=== PATIENT | male | born 1960 ===

== ENCOUNTER 2018-04-08 13:39 | Emergency (ER) | payer OTHER, BC ==
--- NOTE | 2018-04-08 14:04 | ED PDOC ---
Arrival/HPI - General Time Seen by Provider: 04/08/18 14:03 Historian: Patient - History of Present Illness Narrative History of Present Illness (Text): 04/08/18 14:03 58 y/o male, no significant pmh, nkda, c/o mid and lower back pain s/p slipped and landed on the lower back today. Aching pain, aggravated by movement, no numbness or tingling, no urinary or bowel incontinence retention, no rash, no hematuria, no rib or chest pain, no coughing, no night sweat, no other medical or psychological complaints. Past Medical History - Provider Review Nursing Documentation Reviewed: Yes Family/Social History - Physician Review Nursing Documentation Reviewed: Yes Family/Social History: Unknown Family HX Allergies/Home Meds Allergies/Adverse Reactions: Allergies No Known Allergies Allergy (Verified 04/08/18 14:18) Review of Systems - Review of Systems Constitutional: absent: Fatigue, Fevers Eyes: absent: Vision Changes ENT: absent: Hearing Changes Respiratory: absent: SOB, Cough Cardiovascular: absent: Chest Pain Gastrointestinal: absent: Abdominal Pain, Nausea, Vomiting Musculoskeletal: Back Pain. absent: Arthralgias, Neck Pain, Joint Swelling, Myalgias Skin: absent: Rash, Pruritis Neurological: absent: Headache, Dizziness Psychiatric: absent: Anxiety, Depression Physical Exam Vital Signs Reviewed: Yes Vital Signs Temp Pulse Resp BP Pulse Ox 04/08/18 14:13 98.8 F 85 16 142/87 97 Blood Pressure: Normal Pulse: Regular Respiratory Rate: Normal Appearance: Positive for: Well-Appearing, Non-Toxic, Comfortable Pain Distress: None Mental Status: Positive for: Alert and Oriented X 3 - Systems Exam Head: Present: Atraumatic, Normocephalic Pupils: Present: PERRL Extroacular Muscles: Present: EOMI Conjunctiva: Present: Normal Mouth: Present: Moist Mucous Membranes Neck: Present: Normal Range of Motion, Trachea Midline. No: Meningeal Signs, MIDLINE TENDERNESS, Paraspinal Tenderness, Lymphadenopathy Respiratory/Chest: Present: Clear to Auscultation, Good Air Exchange. No: Respiratory Distress, Accessory Muscle Use Cardiovascular: Present: Regular Rate and Rhythm, Normal S1, S2. No: Murmurs Abdomen: No: Tenderness, Distention, Peritoneal Signs Back: Present: Normal Inspection, Other (Thoracic to LS spine: +ttp on the rt. paraspinal muscle region, no midline tenderness or step off, no rash, FROM without limitation, sensation intact, motor 5/5, SLR test negative, no focal neurological deficits. ). No: CVA Tenderness, Midline Tenderness, Pain with Leg Raise, Decubitus Ulcer Upper Extremity: Present: Normal Inspection. No: Cyanosis, Edema Lower Extremity: Present: Normal Inspection. No: Edema Neurological: Present: GCS=15, CN II-XII Intact, Speech Normal, Motor Func Grossly Intact, Gait Normal, Memory Normal Skin: Present: Warm, Dry, Normal Color. No: Rashes Psychiatric: Present: Alert, Oriented x 3, Normal Insight, Normal Concentration Medical Decision Making ED Course and Treatment: 04/08/18 14:25 -Thoracic and LS spine xray -Toradol IM -Observe and reassess 04/08/18 15:50 -Thoracic spine: Normal radiographs of the thoracic spine. -LS spine: There is mild anterior subluxation of L4 over L5. There is facet degeneration in the lower lumbar spine -Pt. has no focal neurological deficits, feeling much better, walking with normal gait and posture, no L4L5 midline tenderness or step off, normal reflexes on the bilateral lower extremities, no numbness or tingling either, will discharge home. I discussed all radiology result with the patient. It doesn 't appear that subluxation is acute as there is no signs or physical examination of acute. -Case discussed with Dr. Merino, discussed about the case and no focal neurologist deficits which he suggest to discharge home with physical therapist and chiropractor. -Discharge home with motrin, flexeril, lidoderm patch, avoid strenuous strenuous exercise or activity, follow up with your own pmd and neurosurgery/ chiropractor and physical therapist within 2 days, return to the ER for any new or worsening signs or symptoms. - RAD Interpretation Radiology Orders: 04/08/18 14:22 DORSAL (THORACIC) SPINE [RAD] Stat LS SPINE WITH OBL > 18 YRS OLD [RAD] Stat Thoracic Spine: HISTORY: mid back pain, s/p fall COMPARISON: No prior. FINDINGS: BONES: Alignment maintained. No fracture. DISC SPACES: Normal. SOFT TISSUES: Normal. OTHER FINDINGS: None. IMPRESSION: Normal radiographs of the thoracic spine. LS Spine: PROCEDURE: Radiographs of the Lumbar Spine. HISTORY: low back pain s/p fall COMPARISON: No prior. FINDINGS: BONES: There is mild anterior subluxation of L4 over L5. There is facet degeneration in the lower lumbar spine DISC SPACES: Unremarkable. OTHER FINDINGS: None. IMPRESSION: There is mild anterior subluxation of L4 over L5. 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 No Sleep Is patient sleeping during reassessment? No Presence of Pain Presence of Pain Yes Pain Scale Used Pain Scale Used Numeric Location Pain Location Body Site Back Description Description Constant IM Administration Charges Document 04/08/18 14:31 LA (Rec: 04/08/18 14:31 LA [id number]) Injection Site MAR Injection Site Right Gluteus Giovanni Charges for Administration # of IM Administrations 1 - PA / RET[employer] PH[employer]Y MANAGER / Resident Statement MD/DO has reviewed & agrees with the documentation as recorded. Disposition/Present on Arrival - Present on Arrival Any Indicators Present on Arrival: No History of DVT/PE: No History of Uncontrolled Diabetes: No Urinary Catheter: No History of Decub. Ulcer: No - Disposition Have Diagnosis and Disposition been Completed?: Yes Diagnosis: Back pain, Subluxation of lumbar vertebra Disposition: HOME/ ROUTINE Disposition Time: 14:25 Patient Plan: Discharge Patient Problems: Current Active Problems Problem Status Onset Back pain Acute Condition: GOOD Additional Instructions: -Discharge home with motrin, flexeril, lidoderm patch, avoid strenuous strenuous exercise or activity, follow up with your own pmd and neurosurgery/ chiropractor and physical therapist within 2 days, return to the ER for any new or worsening signs or symptoms. Prescriptions: Cyclobenzaprine [Cyclobenzaprine HCl] 10 mg PO TID PRN #21 tab PRN Reason: Other Ibuprofen [Motrin Tab] 600 mg PO QID PRN #30 tab PRN Reason: Other Lidocaine 5% [Lidoderm] 1 patch TOP DAILY PRN #30 patch PRN Reason: Other Referrals: Sharri Meneses MD [Primary Care Provider] - Follow up with primary Karthik Ventura MD [Staff Provider] - Follow up with primary Nicki Sims MD [Staff Provider] - Follow up with primary Forms: WORK NOTE
--- NOTE | 2018-04-08 15:15 | RAD ---
HISTORY: mid back pain, s/p fall COMPARISON: No prior. FINDINGS: BONES: Alignment maintained. No fracture. DISC SPACES: Normal. SOFT TISSUES: Normal. OTHER FINDINGS: None. IMPRESSION: Normal radiographs of the thoracic spine.
--- NOTE | 2018-04-08 15:18 | RAD ---
PROCEDURE: Radiographs of the Lumbar Spine. HISTORY: low back pain s/p fall COMPARISON: No prior. FINDINGS: BONES: There is mild anterior subluxation of L4 over L5. There is facet degeneration in the lower lumbar spine DISC SPACES: Unremarkable. OTHER FINDINGS: None. IMPRESSION: There is mild anterior subluxation of L4 over L5. There is facet degeneration in the lower lumbar spine
[2018-04-08 16:07] VITALS: RESP 18; TEMP 98.5
[2018-04-08 16:14] VITALS: BP 138/80; PULSE 81; O2SAT 100
== END 2018-04-08 16:09 | disposition home or self-care (01) ==
LOC: ED 13:39
DX: M54.6 Pain in thoracic spine (principal); S33.140A Subluxation of L4/L5 lumbar vertebra, initial encounter; W01.0XXA Fall on same level from slipping, tripping and stumbling without subsequent striking against object, initial encounter; Y92.9 Unspecified place or not applicable
CPT/HCPCS: 72070; 72110; 96372; 99283; J1885

== ENCOUNTER 2018-11-30 16:53 | Emergency (ER) | payer BC, OTHER ==
[2018-11-30 17:23] VITALS: BMI 39.1
[2018-11-30 17:24] VITALS: BP 145/60; PULSE 89; RESP 18; TEMP 98.2; O2SAT 98
--- NOTE | 2018-11-30 17:49 | ED PDOC ---
Arrival/HPI - General Chief Complaint: Abnormal Skin Integrity Time Seen by Provider: 11/30/18 17:10 Historian: Patient - History of Present Illness Narrative History of Present Illness (Text): 11/30/18 18:18 58 y/o male with PMH of DM, HTN presents to the ED c/o facial rash x 6 days. Rash is red, tender, painful. Originally had vesicles, which popped and have since scabbed over. Prior to the rash developing, patient describes a tingling/burning sensation in the same distribution. Pt saw PMD Dr. Meneses 4 days ago and was prescribed Acyclovir, which patient has been taking as directed. Pt has had no new lesions develop since starting antivirals. Here today c/o persistent rash and pain. Denies sick contacts or recent travel. Denies fever, chills, eye pain, vision changes, abdominal pain, chest pain, SOB, or any other associated complaints. Past Medical History - Provider Review Nursing Documentation Reviewed: Yes - Infectious Disease Hx of Infectious Diseases: None - Cardiac Hx Hypertension: Yes - Endocrine/Metabolic Hx Diabetes Mellitus Type 2: Yes - Hematological/Oncological Hx Blood Disorders: No - Musculoskeletal/Rheumatological Hx Musculoskeletal Disorders: No - Psychiatric Hx Substance Use: No - Anesthesia Hx Anesthesia: No Family/Social History - Physician Review Nursing Documentation Reviewed: Yes Family/Social History: No Known Family HX Smoking Status: Unknown If Ever Smoked Hx Alcohol Use: No Hx Substance Use: No Allergies/Home Meds Allergies/Adverse Reactions: Allergies No Known Allergies Allergy (Verified 11/30/18 17:24) Review of Systems - Physician Review All systems were reviewed & negative as marked: Yes - Review of Systems Constitutional: Normal Eyes: Normal. absent: Vision Changes, Photophobia, Eye Pain ENT: Normal. absent: Sore Throat Respiratory: Normal. absent: SOB, Cough Cardiovascular: Normal. absent: Chest Pain, Palpitations, Syncope Gastrointestinal: Normal. absent: Abdominal Pain, Nausea, Vomiting Genitourinary Male: Normal. absent: Dysuria Musculoskeletal: Normal. absent: Arthralgias, Back Pain Skin: Rash Neurological: Normal. absent: Headache, Dizziness Endocrine: Normal Hemo/Lymphatic: Normal Psychiatric: Normal Physical Exam Vital Signs Reviewed: Yes Vital Signs Temp Pulse Resp BP Pulse Ox 11/30/18 17:23 98.2 F 89 18 145/60 98 Temperature: Afebrile Blood Pressure: Normal Pulse: Regular Respiratory Rate: Normal Appearance: Positive for: Well-Appearing, Non-Toxic, Comfortable Pain Distress: None Mental Status: Positive for: Alert and Oriented X 3 - Systems Exam Head: Present: Atraumatic, Normocephalic, Tenderness (over shingles rash, right forehead) Pupils: Present: PERRL Extroacular Muscles: Present: EOMI, Other (NO pain on eye movement; NO foreign body sensation) Conjunctiva: Present: Normal, Other (NO eye involvement of shingles rash). No: Injected Ears: Present: Normal, NORMAL TM, Normal Canal Mouth: Present: Moist Mucous Membranes Pharnyx: Present: Normal. No: ERYTHEMA, EXUDATE, TONSILS ENLARGED Nose (External): Present: Atraumatic Nose (Internal): Present: Normal Inspection Neck: Present: Normal Range of Motion. No: Meningeal Signs, MIDLINE TENDERNESS, Paraspinal Tenderness Respiratory/Chest: Present: Clear to Auscultation, Good Air Exchange. No: Respiratory Distress, Accessory Muscle Use Cardiovascular: Present: Regular Rate and Rhythm, Normal S1, S2. No: Murmurs Abdomen: No: Tenderness, Distention, Peritoneal Signs Back: Present: Normal Inspection Upper Extremity: Present: Normal Inspection, Normal ROM, NORMAL PULSES, Neurovascularly Intact, Capillary Refill < 2s. No: Cyanosis, Edema, Tenderness, Swelling Lower Extremity: Present: Normal ROM Neurological: Present: GCS=15, CN II-XII Intact, Speech Normal, Motor Func Grossly Intact, Normal Sensory Function, Gait Normal Skin: Present: Warm, Dry, Rashes (red painful rash with 3 areas of scabbing over right eyebrow in V1 distribution), Normal Color Lymphatic: No: Cervical Adenopathy Psychiatric: Present: Alert, Oriented x 3, Normal Insight, Normal Concentration, Normal Affect, Normal Mood Medical Decision Making ED Course and Treatment: Initial Plan: * Reassess and Disposition Patient already saw PMD Dr. Meneses for symptoms and was provided Acyclovir. Patient has had no new lesions since starting anti-viral medication. No eye involvement. Pt denies eye pain or discomfort, no eye redness or proptosis. No vision changes. Advised patient to followup with ophthalmology regardless. Patient states he will followup as instructed. Educated patient that shingles may persist for 3-5 weeks. Patient verbalized understanding. Diagnostic testing results and plan of care discussed with patient. Strict instructions given regarding prescription use, importance of followup, and signs/symptoms to return to ER including eye pain, vision changes, dizziness, headache, worsening pain, or any other new/worsening symptoms. Pt verbalized understanding of discussion. Patient is A&Ox3, ambulating with steady gait, with vital signs stable for discharge. Disposition/Present on Arrival - Present on Arrival Any Indicators Present on Arrival: No History of DVT/PE: No History of Uncontrolled Diabetes: No Urinary Catheter: No History of Decub. Ulcer: No History Surgical Site Infection Following: None - Disposition Have Diagnosis and Disposition been Completed?: Yes Diagnosis: [place] Disposition: HOME/ ROUTINE Disposition Time: 17:30 Patient Plan: Discharge Condition: GOOD Discharge Instructions (ExitCare): [place] (ED) Print Language: GUATEM[place] Additional Instructions: Continue anti-viral medication Followup with eye doctor, Dr. Amezcua tomorrow Followup with primary doctor within 2 days Return to ER with any new/worsening symptoms Referrals: Florian Amezcua MD [Staff Provider] - Follow up with primary Forms: [employer] (Kyr[place]z), WORK NOTE
== END 2018-11-30 18:11 | disposition home or self-care (01) ==
LOC: ED 16:53
DX: B02.9 Zoster without complications (principal)

== ENCOUNTER 2019-02-25 12:30 | Outpatient (CLI) | payer BC | END 2019-02-25 12:31 | disposition home or self-care (01) | LOC: RAD 12:30 ==